=== PATIENT | female | born 1970 | race Caucasian/White ===

== ENCOUNTER 2018-02-18 01:53 | Outpatient (CLI) | payer BC, SELFPAY ==
--- NOTE | 2018-02-18 10:21 | DI.MRI_ITS ---
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 There is normal signal in the spinal cord. No evidence of tonsillar ectopia. At C 7-T 1, there is no focal disc herniation, central spinal canal or neural foraminal stenosis. At C 6-7, there is prominence of the osteophyte disc complex causing narrowing of the central spinal canal. There is also bilateral mild narrowing of the neural foramen. At C 5-6, there is mild prominence of the osteophyte disc complex. No significant central spinal canal stenosis is seen. There is moderate narrowing of the right neural foramen and mild narrowing of the left neural foramen. At C 4-5, there is mild hypertrophic changes of the left uncovertebral joint causing mild narrowing of the neural foramen. No significant central spinal canal stenosis or right neural foraminal stenosis is seen. At C 3-4 and C 2-3, no focal disc herniation, central spinal canal or neural foraminal stenosis is present. There is reversal of the normal cervical lordosis. IMPRESSION: 1. Multi level degenerative changes in the cervical spine. The findings are most marked at C 5-6 and C 6-7 where there is central spinal canal and neural foraminal stenosis as described above.
== END 2018-02-18 02:13 ==
PROVIDERS: PCP Family Medicine; Visit Provider Chiropractor
DX: M54.2 Cervicalgia (principal); M50.322 Other cervical disc degeneration at C5-C6 level; M50.323 Other cervical disc degeneration at C6-C7 level; M48.02 Spinal stenosis, cervical region
CPT/HCPCS: 72141

== ENCOUNTER 2020-08-22 14:04 | Outpatient (REF) | payer BC, SELFPAY ==
[2020-08-22 22:00] LABS: Calculated LDL 134 mg/dL (<100); Cholesterol 208 mg/dL (<200); HDL Cholesterol 60 mg/dL (40-60); Triglyceride 70 mg/dL (<150)
[2020-08-22 22:18] LABS: Hemoglobin A1C 5.4 % (<5.7)
== END 2020-08-22 14:05 | disposition home or self-care (01) ==
LOC: NCHCN 14:04
PROVIDERS: PCP Family Medicine; Visit Provider Nurse Practitioner Community Health
DX: Z13.1 Encounter for screening for diabetes mellitus (principal); Z13.220 Encounter for screening for lipoid disorders
CPT/HCPCS: 80061; 83036